=== PATIENT | male | born 1975 | race Caucasian/White ===

== ENCOUNTER → 2016-11-25 | Outpatient (CLI) | payer MEDICARE, MEDICAID ==
[~2016-11-25] MED LIST: CIPRO 250MG TA250 MG PO; NO HOME MEDICATIONS; NORCO 325 MG-51 TAB PO
== END ==
LOC: COL.RAD 10:22
DX: N27.0 Small kidney, unilateral (principal); N28.1 Cyst of kidney, acquired; N32.89 Other specified disorders of bladder

== ENCOUNTER → 2018-08-03 | Outpatient (CLI) | payer MEDICARE, MEDICAID | LOC: COL.RAD 09:31 | DX: N31.0 Uninhibited neuropathic bladder, not elsewhere classified (principal); N32.89 Other specified disorders of bladder ==

== ENCOUNTER 2021-09-07 14:58 | Outpatient (RCR) | payer MEDICARE, MEDICAID | END 2021-10-05 | disposition home or self-care (01) | LOC: MKS.ESL.OT | DX: Q05.7 Lumbar spina bifida without hydrocephalus (principal); G82.20 Paraplegia, unspecified; Z99.3 Dependence on wheelchair ==

== ENCOUNTER 2022-07-26 16:15 | Outpatient (RCR) | payer MEDICARE, MEDICAID | END 2022-07-26 16:16 | LOC: MKS.ESL.OT 16:15 | DX: Q05.7 Lumbar spina bifida without hydrocephalus (principal); G82.20 Paraplegia, unspecified; Z99.3 Dependence on wheelchair ==

== ENCOUNTER → 2022-09-06 | Outpatient (CLI) | payer MEDICARE, MEDICAID | LOC: COL.RAD 10:18 | DX: N31.0 Uninhibited neuropathic bladder, not elsewhere classified (principal) ==